=== PATIENT | female | born 1990 | race Caucasian/White ===

== ENCOUNTER 2020-09-24 05:26 | Emergency (ER) | payer OTHER ==
[~2020-09-24] VITALS: Ht 170.2 cm; Wt 70.8 kg
[2020-09-24 05:34] VITALS: Ht 170.2 cm; Wt 70.8 kg
[2020-09-24 07:09] VITALS: BP 114/66
== END 2020-09-24 07:09 | disposition home or self-care (01) ==
LOC: ED 05:26
DX: Z11.3 Encounter for screening for infections with a predominantly sexual mode of transmission (principal); Z86.19 Personal history of other infectious and parasitic diseases